=== PATIENT | male | born 1970 | race African-American/Black ===

== ENCOUNTER 2021-06-01 06:14 | Inpatient (IN) ==
[2021-06-01] MEDS ORDERED: HYDROmorphone 2 MG/1 ML VIAL IV STA (06:21)
[2021-06-01] MEDS ORDERED: ONDANSETRON 4 MG/2 ML VIAL IV STA (06:21)
[2021-06-01] MEDS ORDERED: DIPH/TET/ACEL PERT BOOSTER VACCINE 0.5 ML VIAL IM ONE (06:21)
[2021-06-01] MEDS ORDERED: CLINDAMYCIN INJ 600 MG/50 ML PREMIX IV STA (06:21)
[2021-06-01 07:03] LABS: Basophils % 0.3 % (0.0-0.8); Eosinophils % 0.2 % (0.00-10.9); Hematocrit 48.9 VOL% (42.0-52.0); Hemoglobin 15.6 GM/DL (14.0-18.0); Immature Granulocytes % 0.4 %; Immature Granulocytes Absolute 0.04 #; Lymphocytes # 1.5 10*3/uL (1.4-4.0); Lymphocytes % 14.9 % (21.2-54.2); Mean Corpuscular HGB Conc 31.9 GM/DL (32-36); Mean Platelet Volume 10.8 FL (9.6-12.0); Monocytes % 4.6 % (1.7-12.7); Neutrophils % 79.6 % (38.7-73.9); Platelet Count 236 T/CUMM (130-400); Red Blood Count 5.15 MC/CUMM (3.8-5.5); Red Cell Distribution Width 12.8 % (9.3-17.3); White Blood Count 10.1 T/CUMM (4-12)
[2021-06-01 07:20] LABS: Bilirubin,Total 0.5 MG/DL (0.20-1.00); Calcium 9.8 MG/DL (8.5-10.1); Osmolality,Calculated 273.8 MOS/KG (273-304); Potassium 5.3 MMOL/L (3.5-5.1); Total Protein 8.6 G/DL (6.4-8.2)
[2021-06-01] MEDS ORDERED: DEXAMETHASONE 10 MG/1 ML VIAL IV STA (07:21)
[2021-06-01] MEDS ORDERED: ONDANSETRON 4 MG/2 ML VIAL IV PRN (08:54)
[2021-06-01] MEDS: DEXTROSE 5% NACL 0.45% 1,000 ML IV SCH ×2 (10:19→17:56)
[2021-06-01] MEDS: PANTOPRAZOLE 40 MG VIAL IV SCH (10:19)
[2021-06-01] MEDS: MORPHINE 2 MG/1 ML SYRINGE IV PRN ×2 (10:25→16:03)
[2021-06-01] MEDS: ENOXAPARIN 40 MG/0.4 ML SYRINGE SUBCUT SCH (10:33)
[2021-06-01] MEDS: CLINDAMYCIN INJ 600 MG/50 ML PREMIX IV SCH (17:56)
[2021-06-01] MEDS: CHLORHEXIDINE 0.12% ORAL RINSE 60 ML BOTTLE SWISH/SPIT SCH (20:28)
[2021-06-02] MEDS: CLINDAMYCIN INJ 600 MG/50 ML PREMIX IV SCH ×3 (01:26→16:04)
[2021-06-02] MEDS: DEXTROSE 5% NACL 0.45% 1,000 ML IV SCH ×3 (02:29→16:04)
[2021-06-02 05:24] LABS: Basophils % 0.1 % (0.0-0.8); Hematocrit 39.8 VOL% (42.0-52.0); Hemoglobin 12.9 GM/DL (14.0-18.0); Immature Granulocytes % 0.3 %; Immature Granulocytes Absolute 0.03 #; Lymphocytes # 1.8 10*3/uL (1.4-4.0); Lymphocytes % 17.4 % (21.2-54.2); Mean Corpuscular HGB Conc 32.4 GM/DL (32-36); Mean Corpuscular Volume 93.9 FL (87-102); Mean Platelet Volume 10.6 FL (9.6-12.0); Monocytes % 7.6 % (1.7-12.7); Neutrophils % 74.6 % (38.7-73.9); Platelet Count 179 T/CUMM (130-400); Red Blood Count 4.24 MC/CUMM (3.8-5.5); Red Cell Distribution Width 12.8 % (9.3-17.3); White Blood Count 10.1 T/CUMM (4-12)
[2021-06-02 05:48] LABS: Bilirubin,Total 0.5 MG/DL (0.20-1.00); Calcium 8.8 MG/DL (8.5-10.1); Osmolality,Calculated 277.5 MOS/KG (273-304); Potassium 4.6 MMOL/L (3.5-5.1); Total Protein 6.6 G/DL (6.4-8.2)
[2021-06-02] MEDS: ENOXAPARIN 40 MG/0.4 ML SYRINGE SUBCUT SCH (09:32)
[2021-06-02] MEDS: PANTOPRAZOLE 40 MG VIAL IV SCH (09:32)
[2021-06-02] MEDS: CHLORHEXIDINE 0.12% ORAL RINSE 60 ML BOTTLE SWISH/SPIT SCH ×2 (09:32→20:07)
[2021-06-02] MEDS: MORPHINE 2 MG/1 ML SYRINGE IV PRN ×3 (09:36→21:40)
[2021-06-03] MEDS: DEXTROSE 5% NACL 0.45% 1,000 ML IV SCH ×3 (00:03→16:05)
[2021-06-03] MEDS: CLINDAMYCIN INJ 600 MG/50 ML PREMIX IV SCH ×3 (00:06→16:05)
[2021-06-03] MEDS: MORPHINE 2 MG/1 ML SYRINGE IV PRN ×5 (03:38→23:09)
[2021-06-03 05:25] LABS: Basophils % 0.4 % (0.0-0.8); Eosinophils % 0.1 % (0.00-10.9); Hematocrit 36.1 VOL% (42.0-52.0); Hemoglobin 11.8 GM/DL (14.0-18.0); Immature Granulocytes % 0.3 %; Immature Granulocytes Absolute 0.02 #; Lymphocytes # 2.9 10*3/uL (1.4-4.0); Lymphocytes % 37.4 % (21.2-54.2); Mean Corpuscular HGB Conc 32.7 GM/DL (32-36); Mean Corpuscular Volume 95.3 FL (87-102); Mean Platelet Volume 11.7 FL (9.6-12.0); Monocytes % 7.1 % (1.7-12.7); Neutrophils % 54.7 % (38.7-73.9); Platelet Count 160 T/CUMM (130-400); Red Blood Count 3.79 MC/CUMM (3.8-5.5); White Blood Count 7.6 T/CUMM (4-12)
[2021-06-03 05:46] LABS: Albumin 2.7 G/DL (3.4-5.0); Bilirubin,Total 0.6 MG/DL (0.20-1.00); Calcium 8.1 MG/DL (8.5-10.1); Osmolality,Calculated 278.3 MOS/KG (273-304); Potassium 3.6 MMOL/L (3.5-5.1); Total Protein 5.9 G/DL (6.4-8.2)
[2021-06-03] MEDS: PANTOPRAZOLE 40 MG VIAL IV SCH (08:01)
[2021-06-03] MEDS: ENOXAPARIN 40 MG/0.4 ML SYRINGE SUBCUT SCH (08:01)
[2021-06-03] MEDS: CHLORHEXIDINE 0.12% ORAL RINSE 60 ML BOTTLE SWISH/SPIT SCH ×2 (08:02→22:22)
[2021-06-04] MEDS: CLINDAMYCIN INJ 600 MG/50 ML PREMIX IV SCH ×3 (00:23→17:28)
[2021-06-04] MEDS: DEXTROSE 5% NACL 0.45% 1,000 ML IV SCH ×3 (00:24→18:46)
[2021-06-04 05:11] LABS: Basophils % 0.5 % (0.0-0.8); Eosinophils % 0.7 % (0.00-10.9); Hematocrit 36.6 VOL% (42.0-52.0); Hemoglobin 11.8 GM/DL (14.0-18.0); Immature Granulocytes % 0.2 %; Immature Granulocytes Absolute 0.01 #; Lymphocytes # 1.9 10*3/uL (1.4-4.0); Lymphocytes % 32.3 % (21.2-54.2); Mean Corpuscular HGB Conc 32.2 GM/DL (32-36); Mean Corpuscular Volume 93.4 FL (87-102); Mean Platelet Volume 11.3 FL (9.6-12.0); Monocytes % 10.1 % (1.7-12.7); Neutrophils % 56.2 % (38.7-73.9); Platelet Count 160 T/CUMM (130-400); Red Blood Count 3.92 MC/CUMM (3.8-5.5); Red Cell Distribution Width 12.9 % (9.3-17.3); White Blood Count 5.7 T/CUMM (4-12)
[2021-06-04] MEDS: MORPHINE 2 MG/1 ML SYRINGE IV PRN ×5 (05:37→23:02)
[2021-06-04 05:39] LABS: Albumin 2.7 G/DL (3.4-5.0); Bilirubin,Total 0.5 MG/DL (0.20-1.00); Calcium 8.4 MG/DL (8.5-10.1); Osmolality,Calculated 279.1 MOS/KG (273-304); Potassium 3.4 MMOL/L (3.5-5.1)
[2021-06-04] MEDS ORDERED: POTASSIUM CHLORIDE RIDER 20 MEQ/100 ML PREMIX IV PRN (08:10)
[2021-06-04] MEDS: PANTOPRAZOLE 40 MG VIAL IV SCH (10:54)
[2021-06-04] MEDS: CHLORHEXIDINE 0.12% ORAL RINSE 60 ML BOTTLE SWISH/SPIT SCH ×2 (11:01→21:16)
[2021-06-04] MEDS ORDERED: LIDOCAINE 1%/EPI INJ 20 ML VIAL ONE (11:37)
[2021-06-04] MEDS ORDERED: SUCCINYLCHOLINE 200 MG/10 ML VIAL ONE (11:45)
[2021-06-04] MEDS ORDERED: MIDAZOLAM 2 MG/2 ML VIAL ONE ×2 (11:45→14:17)
[2021-06-04] MEDS ORDERED: fentaNYL 100 MCG/2 ML VIAL ONE ×3 (11:45→13:42)
[2021-06-04] MEDS ORDERED: LIDOCAINE 2% 5 ML VIAL ONE (11:45)
[2021-06-04] MEDS ORDERED: propofoL 200 MG/20 ML VIAL IV ONE ×2 (11:45→12:55)
[2021-06-04] MEDS ORDERED: LACTATED RINGERS 1,000 ML IV SCH (12:00)
[2021-06-04] MEDS ORDERED: DEXAMETHASONE 4 MG/1 ML VIAL ONE (12:21)
[2021-06-04] MEDS ORDERED: ACETAMINOPHEN INJ 1,000 MG/100 ML VIAL IV ONE (12:55)
[2021-06-04] MEDS ORDERED: ROCURONIUM 50 MG/5 ML VIAL IV ONE (12:55)
[2021-06-04] MEDS ORDERED: LACTATED RINGERS 1,000 ML IV ONE (12:55)
[2021-06-04] MEDS ORDERED: ONDANSETRON 4 MG/2 ML VIAL ONE (13:38)
[2021-06-04] MEDS ORDERED: NEOSTIGMINE 10 MG/10 ML VIAL ONE (13:42)
[2021-06-04] MEDS ORDERED: SEVOFLURANE 1 UNIT/15 MINUTE INH ONE (13:53)
[2021-06-04] MEDS ORDERED: HYDROcod/ACETAMIN 7.5-325 MG/15 ML UDCUP PO PRN (14:08)
[2021-06-04] MEDS: HYDROmorphone 2 MG/1 ML VIAL IV PRN ×2 (14:10→14:20)
[2021-06-04] MEDS ORDERED: MEPERIDINE 25 MG/1 ML VIAL IV PRN (14:12)
[2021-06-04] MEDS ORDERED: ONDANSETRON 4 MG/2 ML VIAL IV PRN (14:12)
[2021-06-04] MEDS ORDERED: MIDAZOLAM 2 MG/2 ML VIAL IV ONE (14:17)
[2021-06-04] MEDS ORDERED: PHENYLEPHRINE 1 MG/10 ML SYRINGE IV ONE (14:48)
[2021-06-04] MEDS: KETOROLAC 30 MG/1 ML VIAL IV PRN (16:27)
[2021-06-04] MEDS ORDERED: DEXAMETHASONE 4 MG/1 ML VIAL IV ONE (18:00)
[2021-06-05] MEDS: DEXTROSE 5% NACL 0.45% 1,000 ML IV SCH ×2 (01:45→07:51)
[2021-06-05] MEDS: CLINDAMYCIN INJ 600 MG/50 ML PREMIX IV SCH ×2 (01:45→09:08)
[2021-06-05] MEDS: KETOROLAC 30 MG/1 ML VIAL IV PRN ×2 (01:53→09:11)
[2021-06-05] MEDS ORDERED: DEXAMETHASONE 4 MG/1 ML VIAL IV ONE ×2 (02:00→08:00)
[2021-06-05] MEDS: MORPHINE 2 MG/1 ML SYRINGE IV PRN (04:22)
[2021-06-05 05:17] VITALS: BP 130/75
[2021-06-05] MEDS: CHLORHEXIDINE 0.12% ORAL RINSE 60 ML BOTTLE SWISH/SPIT SCH (09:08)
[2021-06-05] MEDS: PANTOPRAZOLE 40 MG VIAL IV SCH (09:09)
== END 2021-06-05 14:50 | DRG 141 ==
LOC: N.EDINP 06:14 → N.ED 06:14 → N.3W 09:22
PROVIDERS: ADMIT Hospitalist; ATTEND Hospitalist